=== PATIENT | male | born 1995 | race Caucasian/White ===

== ENCOUNTER 2022-10-21 17:58 | Emergency (ER) | payer SELFPAY ==
[~2022-10-21] VITALS: Ht 167.6 cm; Wt 64.0 kg
[2022-10-21] MEDS ORDERED: IBUPROFEN 600MG TABLET PO STA (23:45)
[2022-10-22] MEDS ORDERED: IBUP-2029 MT (00:09)
[2022-10-22 00:23] VITALS: BP 124/78
== END 2022-10-22 00:25 | disposition home or self-care (01) ==
LOC: ER 17:58
DX: S09.8XXA Other specified injuries of head, initial encounter (principal); V49.49XA Driver injured in collision with other motor vehicles in traffic accident, initial encounter; Y93.89 Activity, other specified; Y92.89 Other specified places as the place of occurrence of the external cause; Y99.8 Other external cause status; R07.89 Other chest pain
CPT/HCPCS: 71045; 99284